=== PATIENT | female | born 1980 | race Caucasian/White ===

== ENCOUNTER → 2017-09-11 11:46 | Outpatient (CLI) | payer OTHER, SELFPAY ==
--- NOTE | 2017-09-11 11:22 | PT.OTN ---
Current Diagnoses Cervicalgia (09/11/17) Transition note: On September 09, 2017 our therapy services consisting of Speech, Occupational, and Physical Therapy transitioned from the [employer] electronic documentation system to a new [employer] electronic documentation system.?? All documentation prior to September 09 can be found under [employer] saved data. From September 09 forward all medical record documentation will be in [employer] 6.1.
== END ==
PROVIDERS: Visit Provider Family Medicine
DX: M54.2 Cervicalgia (principal); M54.12 Radiculopathy, cervical region
CPT/HCPCS: 95909